=== PATIENT | female | born 1945 | race Caucasian/White ===

== ENCOUNTER 2017-02-19 01:14 | Emergency (ER) | payer MEDICARE, MEDICAID ==
[~2017-02-19] VITALS: Ht 170.2 cm; Wt 60.0 kg
[~2017-02-19 01:14] MED LIST: ALPR1TAB6 PO; AMOX1TAB12 PO; ASPI1TAB30 PO; CALC1TAB84 PO; CHOL200024 PO; DIVA-68 PO; DOCU250C62 PO; FENO145T13 PO; GLIP5TAB10 PO; LORA10TA3 PO; LURA20TA PO; MELA3TAB2 PO; METO25TA35 PO; MIRT30TA4 PO; OXYB5TAB7 PO; POLY17PO3 PO; PRAV40TA2 PO; QUET100T PO; SIME80TA15 PO; TAMS0.4C2 PO
[2017-02-19 01:16] VITALS: BP 123/77
[2017-02-19] MEDS ORDERED: FAMOTIDINE 20 MG TABLET ONE ×2 (01:56→02:40)
[2017-02-19] MEDS ORDERED: DIPHENHYDRAMINE 25 MG CAPSULE ONE ×2 (01:56→02:40)
[2017-02-19] MEDS ORDERED: FAMOTIDINE 20 MG TABLET PO ONE (02:00)
[2017-02-19] MEDS ORDERED: DIPHENHYDRAMINE 25 MG CAPSULE PO ONE (02:00)
== END 2017-02-19 02:51 | disposition home or self-care (01) ==
LOC: ED 02:25
DX: T63.301A Toxic effect of unspecified spider venom, accidental (unintentional), initial encounter (principal); I10 Essential (primary) hypertension; E78.5 Hyperlipidemia, unspecified; E11.9 Type 2 diabetes mellitus without complications; Z90.49 Acquired absence of other specified parts of digestive tract; Y92.099 Unspecified place in other non-institutional residence as the place of occurrence of the external cause
CPT/HCPCS: 99283; Q0163

== ENCOUNTER 2017-02-27 06:18 | Emergency (ER) | payer MEDICARE, MEDICAID ==
[~2017-02-27] VITALS: Ht 170.2 cm; Wt 54.5 kg
[2017-02-27] MEDS ORDERED: SERT50TA5 PO (06:49)
[2017-02-27] MEDS ORDERED: METO25TA4 PO (06:49)
[2017-02-27] MEDS ORDERED: FAMO-79 PO (06:49)
[2017-02-27] MEDS ORDERED: LURA40TA PO (06:49)
[2017-02-27 07:06] LABS: HEMATOCRIT 45.8 % (34.6-47.8); HEMOGLOBIN 15.3 g/dL (11.7-16.4); WHITE BLOOD COUNT 7.6 x10^3/uL (3.4-10)
[2017-02-27 07:19] LABS: BLOOD UREA NITROGEN 15 mg/dL (7-18)
[2017-02-27] MEDS ORDERED: SODIUM CHLORIDE 0.9% 1,000 ML IV ONE (09:02)
[2017-02-27 09:10] VITALS: BP 132/69
[2017-02-27] MEDS ORDERED: CEFTRIAXONE PMX 1GM/50ML 50 ML ONE (09:13)
[2017-02-27] MEDS ORDERED: CEFTRIAXONE PMX 1GM/50ML 50 ML IV ONE (09:30)
[2017-02-27] MEDS ORDERED: SODIUM CHLORIDE FLUSH 10ML SYR IVF ONE (09:30)
[2017-02-27] MEDS ORDERED: OMNIPAQUE 350 MG/ML, 100ML BOTTLE ONE (09:34)
== END 2017-02-27 11:13 | disposition home or self-care (01) ==
LOC: ED 07:25
DX: N10 Acute pyelonephritis (principal); N39.0 Urinary tract infection, site not specified; R10.32 Left lower quadrant pain; I10 Essential (primary) hypertension; E11.9 Type 2 diabetes mellitus without complications
CPT/HCPCS: 36415; 74177; 80048; 81001; 82040; 85025; 87086; 96365; 96366; 99285; J0696; J7030; Q9967